=== PATIENT | male | born 2000 | race Caucasian/White ===

== ENCOUNTER 2022-02-22 21:01 | Emergency (ER) | payer OTHER ==
[~2022-02-22] VITALS: Ht 172.7 cm; Wt 59.0 kg
== END 2022-02-22 22:36 | disposition home or self-care (01) ==
LOC: ER 21:01
DX: S61.412A Laceration without foreign body of left hand, initial encounter (principal); W26.0XXA Contact with knife, initial encounter; Y93.G3 Activity, cooking and baking; Y92.010 Kitchen of single-family (private) house as the place of occurrence of the external cause

== ENCOUNTER → 2024-03-02 09:43 | Outpatient (CLI) | payer OTHER ==
[2024-03-02 10:24] LABS: URINE APPEARANCE Clear; URINE BILIRRUBIN Negative (NEGATIVE); URINE BLOOD Negative; URINE COLOR Yellow; URINE GLUCOSE Negative (NEGATIVE); URINE LEUKOCYTE Negative; URINE NITRATE Negative; URINE PROTEIN Trace (NEGATIVE)
[2024-03-02 10:25] LABS: HEMATOCRIT 41.7 % (39.0-48.0); HEMOGLOBIN 14.1 g/dL (13-16.00); MEAN CELL VOLUME 91.8 fL (80.0-100.00); MEAN CORPUSCULAR HEMOGLOBIN 31.2 pg (27.00-32.0); MEAN CORPUSCULAR HGB CONC 33.9 g/dl (32.0-36.0); PLATELET COUNT 186 K/uL (150-450); RED BLOOD COUNT 4.54 M/uL (4.00-6.00); RED CELL DISTRIBUTION WIDTH 13.6 % (11.5-14.5)
[2024-03-02 10:30] LABS: URINE BACTERIA 6.2 uL (0.0-1933); URINE EPITHELIAL CELLS 7.1 uL (0.0-38.8); URINE WBC 6.3 uL (0.0-23.2)
[2024-03-02 11:19] LABS: ALBUMIN 4.3 gm/dL (3.4-5.0); CHOL HDL RATIO 3.5 (0-5.0); CREATININE SERUM 0.81 mg/dL (0.70-1.30); GFR 116.11; PHOSPHOROUS 2.9 mg/dL (2.5-4.9); POTASSIUM 3.63 mEq/L (3.5-5.1)
== END | disposition home or self-care (01) ==
LOC: LAB 09:43
DX: N18.1 Chronic kidney disease, stage 1 (principal); Z90.5 Acquired absence of kidney

== ENCOUNTER 2024-08-15 08:41 | Outpatient (CLI) | payer OTHER ==
[2024-08-15 10:09] LABS: HEMATOCRIT 45.3 % (39.0-48.0); HEMOGLOBIN 15.6 g/dL (13-16.00); MEAN CELL VOLUME 89.6 fL (80.0-100.00); MEAN CORPUSCULAR HEMOGLOBIN 30.9 pg (27.00-32.0); MEAN CORPUSCULAR HGB CONC 34.5 g/dl (32.0-36.0); PLATELET COUNT 185 K/uL (150-450); RED BLOOD COUNT 5.05 M/uL (4.00-6.00); RED CELL DISTRIBUTION WIDTH 14.1 % (11.5-14.5)
[2024-08-15 11:01] LABS: URINE APPEARANCE Clear; URINE BILIRRUBIN Negative (NEGATIVE); URINE BLOOD Negative; URINE COLOR Yellow; URINE GLUCOSE Negative (NEGATIVE); URINE KETONE 15 (NEGATIVE); URINE LEUKOCYTE Negative; URINE NITRATE Negative; URINE PROTEIN Negative (NEGATIVE)
[2024-08-15 11:06] LABS: URINE BACTERIA 6.1 uL (0.0-1933); URINE RBC 2.6 uL (0.0-20.8)
[2024-08-15 11:17] LABS: URINE EPITHELIAL CELLS 0.9 uL (0.0-38.8); URINE WBC 1.5 uL (0.0-23.2)
[2024-08-15 11:20] LABS: ALBUMIN 4.3 gm/dL (3.4-5.0); CHOL HDL RATIO 3.7 (0-5.0); CREATININE SERUM 0.95 mg/dL (0.70-1.30); GFR 96.59; PHOSPHOROUS 3.4 mg/dL (2.5-4.9); POTASSIUM 4.23 mEq/L (3.5-5.1); TSH 3.32 uIU/mL (0.358-3.74); URIC ACID 3.6 mg/dL (3.5-8.5)
== END 2024-08-15 08:44 | disposition home or self-care (01) ==
LOC: LAB 08:41
DX: I12.9 Hypertensive chronic kidney disease with stage 1 through stage 4 chronic kidney disease, or unspecified chronic kidney disease (principal); I80.9 Phlebitis and thrombophlebitis of unspecified site; E79.0 Hyperuricemia without signs of inflammatory arthritis and tophaceous disease; E78.2 Mixed hyperlipidemia; E11.22 Type 2 diabetes mellitus with diabetic chronic kidney disease; E03.9 Hypothyroidism, unspecified; N18.31 Chronic kidney disease, stage 3a; D63.1 Anemia in chronic kidney disease; N25.81 Secondary hyperparathyroidism of renal origin; E55.9 Vitamin D deficiency, unspecified; Z90.5 Acquired absence of kidney

== ENCOUNTER 2024-08-15 09:23 | Outpatient (CLI) | payer OTHER | END 2024-08-15 09:28 | disposition home or self-care (01) | LOC: SONOGRAMA 09:23 | DX: Z90.5 Acquired absence of kidney (principal) ==